=== PATIENT | male | born 1955 | race Caucasian/White ===

== ENCOUNTER 2023-03-04 08:47 | Inpatient (IN) | payer BC, MEDICAID ==
[~2023-03-04] VITALS: Ht 172.7 cm; Wt 58.1 kg
[2023-03-04 09:46] LABS: BASOPHILS % (AUTO) 0.2 % (0.0-2.0); HEMATOCRIT 44 % (39-51); LYMPHOCYTES # (AUTO) 0.7 K/uL (0.8-4.8); LYMPHOCYTES % (AUTO) 5.9 % (20.0-44.0); MEAN CORPUSCULAR HEMOGLOBIN 28 PG (26.0-33.0); MEAN CORPUSCULAR HGB CONC 32 g/dl (31.0-36.0); MEAN CORPUSCULAR VOLUME 87 fL (80-96); MONOCYTES # (AUTO) 1.3 K/uL (0.1-1.30); MONOCYTES % (AUTO) 11.1 % (2.0-12.0); NEUTROPHILS # (AUTO) 9.4 K/uL (1.8-8.9); NEUTROPHILS % (AUTO) 82.8 % (43.0-81.0); PLATELET COUNT (AUTO) 349 K/uL (150-450); RED BLOOD CELL COUNT(AUTO) 5.05 MIL/uL (4.5-6.0); RED CELL DISTRIBUTION WIDTH 15.5 % (11.5-15.0); WHITE BLOOD COUNT (AUTO) 11.3 K/uL (4.3-11.0)
[2023-03-04 10:15] LABS: CALCIUM, SERUM 9.2 mg/dL (8.5-10.1); CARBON DIOXIDE 26 mmol/L (21-32); CHLORIDE 99 mmol/L (98-107); CREATININE 0.9 mg/dL (0.6-1.3); GLUCOSE 140 mg/dL (74-106); POTASSIUM 3.6 mmol/L (3.5-5.1); SODIUM SERUM 134 mmol/L (136-145); UREA NITROGEN, BLOOD 20 mg/dL (7-18)
[2023-03-04 10:27] LABS: ALANINE AMINOTRANSFERASE 24 U/L (12-78); ALBUMIN 3.3 g/dL (3.4-5.0); ALCOHOL, BLOOD < 3 mg/dL (0-10); ALKALINE PHOSPHATASE 95 U/L (46-116); ASPARTATE AMINOTRANSFERASE 15 U/L (15-37); BILIRUBIN,TOTAL 0.7 mg/dL (0.2-1.0); SALICYLATE 0.6 mg/dL (2.8-20.0); TOTAL PROTEIN, SERUM 8.8 g/dL (6.4-8.2)
[2023-03-04 11:28] LABS: ACETAMINOPHEN 0 ug/ml (10-30)
[2023-03-04 11:39] LABS: APPEARANCE,URINE CLEAR (CLEAR); BILIRUBIN,URINE NEGATIVE (NEGATIVE); BLOOD, URINE NEGATIVE Ery/uL (NEGATIVE); COLOR,URINE YELLOW (YELLOW); KETONES,URINE NEGATIVE (NEGATIVE); LEUKOCYTE ESTERASE ,URINE NEGATIVE (NEGATIVE); NITRITE, URINE NEGATIVE (NEGATIVE); PH,URINE 5.5 (5.0-8.0); PROTEIN,URINE NEGATIVE (NEGATIVE); UGLUCOSE NEGATIVE (NEGATIVE); UROBILINOGEN,URINE 0.2 EU/dL (0.2)
[2023-03-04 12:25] LABS: BARBITURATE, URINE NEGATIVE (NEGATIVE); BENZODIAZEPINE, URINE NEGATIVE (NEGATIVE); CANNABINOID, URINE NEGATIVE (NEGATIVE); COCCAINE, URINE NEGATIVE (NEGATIVE); OPIATE, URINE NEGATIVE (NEGATIVE)
[2023-03-04 12:38] LABS: AMPHETAMINE, URINE POSITIVE (NEGATIVE); PHENCYCLIDINE SCREEN,URINE POSITIVE (NEGATIVE)
[2023-03-04 16:00] VITALS: BP 155/98; TEMP 98.9; O2SAT 100
[2023-03-04] MEDS ORDERED: Z GUARD REMEDY 4 OZ OINT TP PRN (16:00)
[2023-03-04] MEDS ORDERED: TEMAZEPAM 15 MG CAPSULE PO PRN (16:00)
[2023-03-04] MEDS ORDERED: ACETAMINOPHEN 325 MG TABLET PO PRN (16:00)
[2023-03-04] MEDS ORDERED: MAGNESIUM HYDROXIDE 30 ML UDC PO PRN (16:00)
[2023-03-04] MEDS ORDERED: ONDANSETRON HCL/PF 4 MG/2 ML VIAL IVP PRN (16:00)
[2023-03-04] MEDS ORDERED: MAG HYDROX/AL HYDROX/SIMETH 30 ML UDC PO PRN (16:00)
[2023-03-04] MEDS: HYDROCODONE/APAP 5/325MG TABLET PO PRN (17:58)
[2023-03-04] MEDS ORDERED: TRAMADOL HCL 50 MG TABLET PO PRN (21:30)
[2023-03-05] VITALS: BP 167/106; TEMP 97.5; O2SAT 100
[2023-03-05] MEDS: KETOROLAC TROMETHAMINE INJ 30 MG/ML VIAL IV PRN ×2 (00:42→21:39)
[2023-03-05 07:24] LABS: HEMATOCRIT 42 % (39-51); HEMOGLOBIN 13.8 g/dL (13.5-17.5); LYMPHOCYTES % (AUTO) 9.7 % (20.0-44.0); MEAN CORPUSCULAR HEMOGLOBIN 28 PG (26.0-33.0); MEAN CORPUSCULAR HGB CONC 33 g/dl (31.0-36.0); MEAN CORPUSCULAR VOLUME 86 fL (80-96); MONOCYTES # (AUTO) 1.4 K/uL (0.1-1.30); MONOCYTES % (AUTO) 14.4 % (2.0-12.0); NEUTROPHILS # (AUTO) 7.6 K/uL (1.8-8.9); NEUTROPHILS % (AUTO) 75.9 % (43.0-81.0); PLATELET COUNT (AUTO) 337 K/uL (150-450); RED BLOOD CELL COUNT(AUTO) 4.86 MIL/uL (4.5-6.0); RED CELL DISTRIBUTION WIDTH 15.2 % (11.5-15.0)
[2023-03-05] MEDS: PANTOPRAZOLE 40 MG TABLET.DR PO SCH (07:40)
[2023-03-05 07:53] LABS: CALCIUM, SERUM 8.9 mg/dL (8.5-10.1); CREATININE 0.8 mg/dL (0.6-1.3); MAGNESIUM 2.3 mg/dL (1.8-2.4); PHOSPHORUS 2.8 mg/dL (2.5-4.9)
[2023-03-05 08:00] VITALS: BP 159/95; TEMP 98.4; O2SAT 99
[2023-03-05] MEDS ORDERED: ENSURE ENLIVE 237 ML LIQUID (VANILLA) PO SCH (09:00)
[2023-03-05 16:00] VITALS: BP 153/96; TEMP 98.5; O2SAT 99
[2023-03-05] MEDS: HYDROCODONE/APAP 5/325MG TABLET PO PRN (17:07)
[2023-03-06] VITALS: BP 154/90; TEMP 98.4; O2SAT 98
[2023-03-06 07:35] LABS: CALCIUM, SERUM 8.3 mg/dL (8.5-10.1); CREATININE 0.8 mg/dL (0.6-1.3)
[2023-03-06 08:00] VITALS: BP 156/102; TEMP 98.2; O2SAT 97
[2023-03-06] MEDS: PANTOPRAZOLE 40 MG TABLET.DR PO SCH (08:45)
[2023-03-06 16:00] VITALS: BP 153/94; TEMP 98; O2SAT 98
== END 2023-03-06 21:17 | DRG 729 ==
LOC: ER 09:01 → MEDSG1 15:46
PROVIDERS: ADMIT Nurse Practitioner Acute Care; ATTEND Internal Medicine
DX: N43.3 Hydrocele, unspecified (principal); E44.0 Moderate protein-calorie malnutrition; E87.1 Hypo-osmolality and hyponatremia; R64 Cachexia; Z68.1 Body mass index [BMI] 19.9 or less, adult; Z59.01 Sheltered homelessness; K40.90 Unilateral inguinal hernia, without obstruction or gangrene, not specified as recurrent; F19.10 Other psychoactive substance abuse, uncomplicated; E86.1 Hypovolemia; F17.210 Nicotine dependence, cigarettes, uncomplicated; Z71.6 Tobacco abuse counseling; Z20.822 Contact with and (suspected) exposure to COVID-19
CPT/HCPCS: 36415; 76870-TC; 80048-TC; 80076-TC; 83735-TC; 84100-TC; 85025-TC; 97112-TC; 97116-TC; 97530-TC; G0378; G0480; J1885

== ENCOUNTER 2023-11-07 09:28 | Emergency (ER) | payer OTHER, MEDICAID ==
[~2023-11-07] VITALS: Ht 170.2 cm; Wt 54.4 kg
[2023-11-07 10:05] VITALS: BP 138/88; TEMP 97.9; O2SAT 99
== END 2023-11-07 10:37 | disposition home or self-care (01) ==
LOC: ER 09:36
DX: M54.2 Cervicalgia (principal); K40.90 Unilateral inguinal hernia, without obstruction or gangrene, not specified as recurrent; Z98.890 Other specified postprocedural states

== ENCOUNTER 2023-11-08 19:12 | Emergency (ER) | payer OTHER, MEDICAID ==
[~2023-11-08] VITALS: Ht 165.1 cm; Wt 61.2 kg
[2023-11-08 19:31] VITALS: BP 128/83; TEMP 98.1
[2023-11-08 20:24] VITALS: O2SAT 100
== END 2023-11-08 20:48 | disposition home or self-care (01) ==
LOC: ER 19:22
DX: K40.90 Unilateral inguinal hernia, without obstruction or gangrene, not specified as recurrent (principal); M54.2 Cervicalgia; M19.90 Unspecified osteoarthritis, unspecified site

== ENCOUNTER 2024-09-24 13:59 | Emergency (ER) | payer BC, MEDICAID, OTHER ==
[~2024-09-24] VITALS: Ht 152.4 cm; Wt 59.0 kg
[2024-09-24] MEDS ORDERED: NALO4SPR BNOSTRILS (14:21)
[2024-09-24 14:46] VITALS: BP 151/91; TEMP 98.3; O2SAT 98
== END 2024-09-24 14:47 | disposition home or self-care (01) ==
LOC: ER 14:08
DX: F11.10 Opioid abuse, uncomplicated (principal); K40.90 Unilateral inguinal hernia, without obstruction or gangrene, not specified as recurrent; M19.90 Unspecified osteoarthritis, unspecified site; Z65.3 Problems related to other legal circumstances; Z98.890 Other specified postprocedural states

== ENCOUNTER 2025-01-17 17:55 | Emergency (ER) | payer MEDICARE, OTHER ==
[~2025-01-17] VITALS: Ht 157.5 cm; Wt 56.7 kg
[~2025-01-17 17:55] MED LIST: NALO4SPR BNOSTRILS
[2025-01-17 18:04] VITALS: BP 137/88; TEMP 98.4
[2025-01-17 18:40] VITALS: O2SAT 97
[2025-01-17] MEDS ORDERED: CEFTRIAXONE 1 G VIAL ONE (18:53)
[2025-01-17] MEDS ORDERED: SULFAMETH/TRIMETH 800/160 MG 1 UDTAB TABLET ONE (18:53)
[2025-01-17] MEDS ORDERED: LIDOCAINE /MPF 1% VIAL 5 ML VIAL ONE (18:55)
[2025-01-17] MEDS: SULFAMETH/TRIMETH 800/160 MG 1 UDTAB TABLET PO ONE (19:01)
[2025-01-17] MEDS: CEFTRIAXONE 1 G VIAL IM ONE (19:03)
[2025-01-17] MEDS ORDERED: CEPH-570 PO (19:07)
== END 2025-01-17 19:39 | disposition left against medical advice (07) ==
LOC: ER 17:58
DX: S80.922A Unspecified superficial injury of left lower leg, initial encounter (principal); L03.116 Cellulitis of left lower limb; M19.90 Unspecified osteoarthritis, unspecified site; Z87.2 Personal history of diseases of the skin and subcutaneous tissue; Z86.19 Personal history of other infectious and parasitic diseases; Z98.890 Other specified postprocedural states; X58.XXXA Exposure to other specified factors, initial encounter; Y93.89 Activity, other specified; Y92.89 Other specified places as the place of occurrence of the external cause; Y99.8 Other external cause status
CPT/HCPCS: 99283; 96372; J0696; J3490

== ENCOUNTER 2025-01-22 18:47 | Inpatient (IN) | payer MEDICARE, OTHER ==
[~2025-01-22] VITALS: Ht 170.2 cm; Wt 56.7 kg
[~2025-01-22 18:47] MED LIST changes: +CEPH-570 PO
[2025-01-22] MEDS ORDERED: VANCOMYCIN 1 GM /D5W 250 ML PB IV ONE (20:32)
[2025-01-22 20:34] LABS: PLATELET COUNT (AUTO) 536 K/uL (150-450); RED BLOOD CELL COUNT(AUTO) 4.07 MIL/uL (4.5-6.0); RED CELL DISTRIBUTION WIDTH 15.4 % (11.5-15.0); WHITE BLOOD COUNT (AUTO) 5.2 K/uL (4.3-11.0)
[2025-01-22 20:39] LABS: CALCIUM, SERUM 9.1 mg/dL (8.5-10.1); CREATININE 0.9 mg/dL (0.6-1.3); SODIUM SERUM 137.0 mmol/L (136-145); UREA NITROGEN, BLOOD 12.0 mg/dL (7-18)
[2025-01-22 20:45] LABS: ASPARTATE AMINOTRANSFERASE 23.0 U/L (15-37); TOTAL PROTEIN, SERUM 8.3 g/dL (6.4-8.2)
[2025-01-22 20:48] LABS: LACTIC ACID 1.3 mmol/L (0.4-2.0)
[2025-01-22] MEDS: VANCOMYCIN HCL 1 GM in IV D5W 260 ML IV ONE (20:49)
[2025-01-22] MEDS ORDERED: DOSING PER PHARMACY-VANCOMYCIN IV XX PRN (23:30)
[2025-01-22] MEDS ORDERED: TEMAZEPAM 15 MG CAPSULE PO PRN (23:30)
[2025-01-22] MEDS ORDERED: MAG HYDROX/AL HYDROX/SIMETH 30 ML UDC PO PRN (23:30)
[2025-01-22] MEDS ORDERED: ONDANSETRON HCL/PF 4 MG/2 ML VIAL IVP PRN (23:30)
[2025-01-22] MEDS ORDERED: MAGNESIUM HYDROXIDE 30 ML UDC PO PRN (23:30)
[2025-01-23] VITALS (7 sets, daily range): BP systolic 142–168; BP diastolic 84–100; TEMP 97.9–98.6; O2SAT 98–100
[2025-01-23] MEDS ORDERED: ENOXAPARIN SODIUM 40 MG/0.4 ML DISP.SYRIN SQ ONE (00:14)
[2025-01-23] MEDS ORDERED: CEFEPIME 1 GM VIAL ONE (00:14)
[2025-01-23] MEDS: CEFEPIME 2 GM in IV D5W 100 ML IV SCH (00:16)
[2025-01-23] MEDS: ENOXAPARIN SODIUM 40 MG/0.4 ML DISP.SYRIN SQ SCH ×2 (00:18→21:03)
[2025-01-23] MEDS ORDERED: hydrALAZINE HCL IV 20 MG VIAL ONE (01:42)
[2025-01-23] MEDS: hydrALAZINE HCL IV 20 MG VIAL IV PRN (01:46)
[2025-01-23] MEDS ORDERED: HYDROCODONE/APAP 5/325MG TABLET ONE (02:15)
[2025-01-23] MEDS: HYDROCODONE/APAP 5/325MG TABLET PO PRN (02:18)
[2025-01-23 06:32] LABS: PLATELET COUNT (AUTO) 525 K/uL (150-450); RED BLOOD CELL COUNT(AUTO) 3.93 MIL/uL (4.5-6.0); RED CELL DISTRIBUTION WIDTH 15.7 % (11.5-15.0); WHITE BLOOD COUNT (AUTO) 7.2 K/uL (4.3-11.0)
[2025-01-23 07:02] LABS: CALCIUM, SERUM 8.5 mg/dL (8.5-10.1); CREATININE 1.0 mg/dL (0.6-1.3); PHOSPHORUS 1.8 mg/dL (2.5-4.9); SODIUM SERUM 135.0 mmol/L (136-145); UREA NITROGEN, BLOOD 14.0 mg/dL (7-18)
[2025-01-23] MEDS: PANTOPRAZOLE 40 MG TABLET.DR PO SCH (07:18)
[2025-01-23] MEDS: VANCOMYCIN 750 MG in IV D5W 250 ML IV SCH (08:34)
[2025-01-23] MEDS: NICOTINE PATCH (14MG) 14 MG PATCH.TD24 TD SCH (09:26)
[2025-01-23] MEDS: ACETAMINOPHEN 325 MG TABLET PO PRN (15:46)
[2025-01-23] MEDS: K PHOS NEUTRAL 250 MG TABLET PO ONE (16:11)
[2025-01-24 06:24] LABS: PLATELET COUNT (AUTO) 564 K/uL (150-450); RED BLOOD CELL COUNT(AUTO) 4.40 MIL/uL (4.5-6.0); RED CELL DISTRIBUTION WIDTH 15.6 % (11.5-15.0); WHITE BLOOD COUNT (AUTO) 6.2 K/uL (4.3-11.0)
[2025-01-24 06:41] LABS: CALCIUM, SERUM 8.7 mg/dL (8.5-10.1); CREATININE 1.1 mg/dL (0.6-1.3); PHOSPHORUS 2.3 mg/dL (2.5-4.9); SODIUM SERUM 134.0 mmol/L (136-145); UREA NITROGEN, BLOOD 9.0 mg/dL (7-18)
[2025-01-24 07:00] VITALS: BP 153/98; TEMP 98.6; O2SAT 99
[2025-01-24 08:47] VITALS: BP 162/78; TEMP 98.1; O2SAT 94
[2025-01-24 08:59] VITALS: BP 150/90; TEMP 98; O2SAT 99
[2025-01-24] MEDS: AMLODIPINE BESYLATE 5 MG TABLET PO SCH (13:12)
[2025-01-24 16:00] VITALS: BP_SYST 124; BP_SYST 128; BP_DIAS 83; BP_DIAS 88; TEMP 97.7; TEMP 98.1; O2SAT 97; O2SAT 99
[2025-01-24] MEDS: K PHOS NEUTRAL 250 MG TABLET PO ONE (16:30)
[2025-01-24 16:59] VITALS: BP 128/88; TEMP 98.1; O2SAT 99
[2025-01-24] MEDS: CEPHALEXIN MONOHYDRATE 250 MG CAPSULE PO SCH (17:09)
[2025-01-24 21:30] VITALS: BP 144/86; TEMP 98.6; O2SAT 100
[2025-01-25 06:26] LABS: PLATELET COUNT (AUTO) 581 K/uL (150-450); RED BLOOD CELL COUNT(AUTO) 4.52 MIL/uL (4.5-6.0); RED CELL DISTRIBUTION WIDTH 15.9 % (11.5-15.0); WHITE BLOOD COUNT (AUTO) 5.6 K/uL (4.3-11.0)
[2025-01-25 06:33] LABS: CALCIUM, SERUM 8.7 mg/dL (8.5-10.1); CREATININE 1.0 mg/dL (0.6-1.3); SODIUM SERUM 140.0 mmol/L (136-145); UREA NITROGEN, BLOOD 11.0 mg/dL (7-18)
[2025-01-25 16:01] VITALS: BP 140/86; TEMP 98.4; O2SAT 98
[2025-01-25] MEDS: K PHOS NEUTRAL 250 MG TABLET PO ONE (18:16)
[2025-01-25 20:00] VITALS: BP 151/90; TEMP 98.6; O2SAT 95
[2025-01-26 08:00] VITALS: BP 132/81; TEMP 98.2; O2SAT 99
[2025-01-26 08:17] VITALS: BP 132/81
[2025-01-26] MEDS ORDERED: CEPH-570 PO (10:55)
[2025-01-26] MEDS ORDERED: AMLO-212 PO (10:55)
== END 2025-01-26 17:13 | disposition home or self-care (01) | DRG 603 ==
LOC: ER 18:53 → MED 01-23 02:12
PROVIDERS: ADMIT Registered Nurse Psychiatric/Mental Health; ATTEND Nurse Practitioner Acute Care
DX: L03.116 Cellulitis of left lower limb (principal); D68.59 Other primary thrombophilia; Z59.00 Homelessness unspecified; S91.114A Laceration without foreign body of right lesser toe(s) without damage to nail, initial encounter; D69.6 Thrombocytopenia, unspecified; L03.115 Cellulitis of right lower limb; D64.9 Anemia, unspecified; B19.20 Unspecified viral hepatitis C without hepatic coma; F19.10 Other psychoactive substance abuse, uncomplicated; K40.90 Unilateral inguinal hernia, without obstruction or gangrene, not specified as recurrent; F17.200 Nicotine dependence, unspecified, uncomplicated; S80.211A Abrasion, right knee, initial encounter; X58.XXXA Exposure to other specified factors, initial encounter; Y92.9 Unspecified place or not applicable; M21.612 Bunion of left foot; M21.611 Bunion of right foot; M06.9 Rheumatoid arthritis, unspecified; Z87.81 Personal history of (healed) traumatic fracture; S81.812A Laceration without foreign body, left lower leg, initial encounter; Z53.29 Procedure and treatment not carried out because of patient's decision for other reasons; S91.115A Laceration without foreign body of left lesser toe(s) without damage to nail, initial encounter
CPT/HCPCS: 36415; 73590-TC; 80048-TC; 80053-TC; 80202-TC; 83605-TC; 83735-TC; 84100-TC; 85025-TC; 87040-TC; 93971-TC; A4223; G0378; J0360; J0692; J1650; J3373; J3374; J7040; J7060